=== PATIENT | female | born 1965 | race Caucasian/White ===

== ENCOUNTER 2016-03-25 12:25 | Day surgery (SDC) | payer OTHER ==
[~2016-03-25] VITALS: Ht 162.6 cm; Wt 104.3 kg
[~2016-03-25 12:25] MED LIST: AMPI3VIA IJ; ATEN100T PO; CETI10CA PO; CHOL500050 PO; CIPRODEX; CUB500I IV; CYAN500 PO; DIAZ5TAB3 PO; DIL4T PO; DOCU-41 PO; EPIN0.3P2 IJ; FLUC150T48 PO; FOLI1TAB18 PO; HYDR50CA PO; IMMUNE GLOBULIN IV; INSU100V7 SUBQ; INSU200I SQ; LACT1CAP13 PO; MEPE50TA PO; MERO1PIG IV; MS15TCR PO; MUPI1OIN5 NASAL; OFLO5DRO5 AFFECT_EAR; OMEP20TA24 PO; ONDA2VIA INJ; OXYC5TAB72 PO; PHENERGAN CODEINE; TRIA1CAP PO; WARF1TAB6 PO; ZLP10T PO; [UNRECOGNIZED DRUG - OTHER] INH; bactroban RIGHT_EAR
[2016-03-25 13:02] VITALS: BP 123/79; PULSE 84; RESP 16; O2SAT 97
[2016-03-25] MEDS: SODIUM CHLORIDE INTRACATH SCH ×4 (13:05→13:07)
[2016-03-25] MEDS: ALTEPLASE INTRACATH SCH ×4 (13:05→13:07)
[2016-03-25] MEDS ORDERED: Sodium Chloride LOK Flush 10 mL Syringe IVFLUSH ONE (15:30)
[2016-03-25] MEDS ORDERED: HepLOK Flush 100 unit/mL 5 mL Inj IVFLUSH ONE (15:30)
--- NOTE | 2016-03-25 15:49 | NUR ---
Alteplase Patient arrived to unit with crutches. Reports left knee pain/weakness -see orthopedic MD. Alteplase infused without adverse reaction. Both lumens flushed with 20mls of NS and 500units of Heparin. New claves placed. Left unit in stable condition.
[2016-07-22] MEDS ORDERED: Ofloxacin PO (14:07)
[2016-07-22] MEDS ORDERED: CHOL10008 PO (14:07)
[2016-07-22] MEDS ORDERED: Docusate Sodium PO (14:07)
[2016-07-22] MEDS ORDERED: DIAZ10TA PO (14:07)
[2016-07-22] MEDS ORDERED: HYDR25CA PO (14:07)
[2016-07-22] MEDS ORDERED: CYAN500 PO (14:07)
[2016-07-22] MEDS ORDERED: TRIA1CAP PO (14:07)
[2016-07-22] MEDS ORDERED: OXYC1TAB24 PO (14:07)
[2016-07-22] MEDS ORDERED: WARF1TAB6 PO (18:46)
== END 2016-03-25 23:59 | disposition home or self-care (01) ==
LOC: MOCO 12:25
PROVIDERS: ATTEND Surgery
DX: M86.68 Other chronic osteomyelitis, other site (principal)
CPT/HCPCS: 36593; J1642; J2997

== ENCOUNTER 2016-05-25 15:30 | Day surgery (SDC) | payer OTHER ==
[~2016-05-25] VITALS: Ht 162.6 cm; Wt 104.0 kg
[2016-05-25] MEDS ORDERED: 0.9% Sodium Chloride 100 ML ONE (15:31)
--- NOTE | 2016-05-25 15:49 | NUR ---
Pt arrived to [facility]: Pt arrived to [facility] for infusion of RPA. Pt stated that lines on Power Arenas only work "part of the time". Both lumens flushed very easily with brisk return of blood. When discussed with pt on the need still for the infusion pt was insistent that she receive infusion of RPA because of the "infrequency that lines work". Pt stated "it's hit and miss". Call placed to IVT for any further advise regarding Power Arenas. Awaiting medication from pharmacy.
[2016-05-25] MEDS: SODIUM CHLORIDE 0.9% IV PRN ×2 (16:30→16:31)
[2016-05-25] MEDS: ALTEPLASE IV PRN ×2 (16:30→16:31)
[2016-05-25 16:50] VITALS: BP 118/70; PULSE 76; RESP 18; O2SAT 95
[2016-05-25] MEDS ORDERED: HepLOK Flush 100 unit/mL 5 mL Inj ONE (18:19)
--- NOTE | 2016-05-25 18:51 | NUR ---
Infusion: Alteplase infused without adverse reaction. Both lumens flushed with 20mls of NS and 500units of Heparin.New claves placed. Left unit in stable condition.
[2016-07-22] MEDS ORDERED: Ofloxacin PO (14:07)
[2016-07-22] MEDS ORDERED: TRIA1CAP PO (14:07)
[2016-07-22] MEDS ORDERED: CHOL10008 PO (14:07)
[2016-07-22] MEDS ORDERED: OXYC1TAB24 PO (14:07)
[2016-07-22] MEDS ORDERED: CYAN500 PO (14:07)
[2016-07-22] MEDS ORDERED: DIAZ10TA PO (14:07)
[2016-07-22] MEDS ORDERED: HYDR25CA PO (14:07)
[2016-07-22] MEDS ORDERED: Docusate Sodium PO (14:07)
[2016-07-22] MEDS ORDERED: WARF1TAB6 PO (18:46)
== END 2016-05-25 23:59 | disposition home or self-care (01) ==
LOC: MOCO 15:30
PROVIDERS: ATTEND Surgery
DX: T82.898A Other specified complication of vascular prosthetic devices, implants and grafts, initial encounter (principal); M86.68 Other chronic osteomyelitis, other site
CPT/HCPCS: 36593; J1642; J2997

== ENCOUNTER 2016-10-30 09:03 | Inpatient (IN) | payer OTHER ==
[~2016-10-30] VITALS: Ht 162.6 cm; Wt 106.0 kg
[2016-10-30] VITALS (16 sets, daily range): BP systolic 98–138; BP diastolic 68–82; PULSE 71–80; RESP 7–18; O2SAT 94–99
[~2016-10-30 09:03] MED LIST changes: +CHOL10008 PO; -CHOL500050 PO; -CIPRODEX; +DIAZ10TA PO; -DIL4T PO; -DOCU-41 PO; +Docusate Sodium PO; -EPIN0.3P2 IJ; +HYDR25CA PO; -HYDR50CA PO; -LACT1CAP13 PO; +LACT1CAP26 PO; +Lactated Ringer's 1,000 ML IV ONE; -MEPE50TA PO; -MUPI1OIN5 NASAL; -OFLO5DRO5 AFFECT_EAR; -ONDA2VIA INJ; +OXYC-530 PO; +OXYC1TAB24 PO; -OXYC5TAB72 PO; +Ofloxacin PO; -PHENERGAN CODEINE; -[UNRECOGNIZED DRUG - OTHER] INH; -bactroban RIGHT_EAR
[2016-10-30 10:27] LABS: INR 0.95 ratio
[2016-10-30] MEDS ORDERED: HYDR2TAB28 PO (10:48)
--- NOTE | 2016-10-30 11:39 | PCM.HPANE ---
Patient Data Date of Service: Oct 30, 2016 Surgeon Admitting Provider: Attending Provider:Sivakumar Enamorado MD Primary Care Physician:Chad Shaver MD Other Provider:Marco A Juárez Anesthesia Reason for Visit Chronic Right Ear Mastoiditis,Hearing Loss CHRONIC RIGHT EAR MASTOIDITIS,HEARING LOSS Ht/WT & BMI Height (Feet): 5 Height (Inches): 4.00 Weight (Kilograms): 102.1 Body Mass Index 38.00 Allergies Coded Allergies: diclofenac (Verified Allergy, Severe, hives, 10/23/16) latex (Verified Allergy, Severe, HIVES, 10/23/16) misoprostol (Verified Allergy, Severe, hives, 10/23/16) sulbactam (Verified Allergy, Severe, anaphlatic to generic only. can use brand, 10/23/16) Penicillins (Verified Allergy, Intermediate, HIVES, 10/23/16) Sulfa (Sulfonamide Antibiotics) (Verified Allergy, Intermediate, Hives, ) itraconazole (Verified Allergy, Intermediate, stops bone marrow growth, ) GETS PANCYTOPENIC piperacillin (Verified Allergy, Unknown, UNKNOWN, 10/23/16) pancytopenic- can tolerate BRAND NAME UNASYN tazobactam (Verified Allergy, Unknown, UNKNOWN, 10/23/16) pancytopenic- can tolerate BRAND NAME UNASYN TAPE (Verified Adverse Reaction, Severe, RASH (ADHESIVE TAPE), 10/23/16) ibuprofen (Verified Adverse Reaction, Severe, n/v, 10/23/16) Past Anesthesia History Anesthesia History: Positive for:: Anesthesia Reactions (nausea, was awake for one procedure, anxiety r/t this/CLAUSTROPHOBIC), Denies:: Abnormal Airway, Difficult Intubation, Fam Anesthesia Reaction, Fam Malignant Hypertherm, Malignant Hyperthermia Diabetes History Hx Diabetes?: Yes (last Hgb A1c approx 6 mos ago 6.1) Type of Diabetes: Type II Glycemic Control: Insulin Dependent MRSA MRSA: Yes (prior hx, 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) Medications Blood Thinner: Coumadin Hypertension Medication: Yes Home Meds Incl Beta Marquita: Yes Date Beta Marquita Taken: Oct 30, 2016 Time Beta Marquita Taken: 0600 Reported Medications Hydromorphone 2 Mg Tablet2 Mg PO Q4H PRN Pain Ref 0 10/30/16 Warfarin Sodium 1 Mg Tablet1 Mg PO DAILY 30 Days Ref 0 07/22/16 Cyanocobalamin (Vitamin B12)500 Mcg Tablet1,000 Mcg PO DAILY 07/22/16 Hydroxyzine Pamoate (Vistaril)25 Mg Yykibkj92 Mg PO QID PRN For Itching Ref 0 07/22/16 Triamterene/HCTZ 37.5-25 mg (Dyazide 37.5-25 mg)1 Each Capsule1 Capsule PO DAILY Ref 0 07/22/16 [Docusate Sodium ] No Conflict Check50 Mg PO HS PRN For Constipation 07/22/16 Cholecalciferol (Vitamin D3) (Vitamin D3)1,000 Unit Tab.chew50,000 Unit PO DAILY 07/22/16 Omeprazole Magnesium (Prilosec Otc)20 Mg Tablet.dr40 Mg PO DAILY #1 PKG Ref 0 11/26/15 Meropenem-0.9% Sodium Chloride (Meropenem-0.9% NaCl 1 Gram/50)1 Gram/50 Ml Piggyback1 Gm IV TID 11/26/15 Diazepam 5 Mg Tablet5 Mg PO TID PRN For Anxiety Ref 0 11/26/15 Insulin Lispro (Humalog Kwikpen)200 Unit/Ml (3 Ml) Insuln.pen1 Unit SQ TIDWM 06/24/15 Insulin Glargine (Lantus U100 Insulin Vial)100 Unit/Ml Vial15 Unit SUBQ QPM #1 VIAL Ref 0 06/24/15 Folic Acid 1 Mg Wnzdpi396 Mcg PO DAILY 30 Days 06/24/15 Cetirizine HCl (Zyrtec)10 Mg Jdphggv59 Mg PO DAILY #30 CAPSULE Ref 0 06/24/15 oxyCODONE 5 Mg Tablet5 Mg PO Q6H PRN For Pain Ref 0 06/24/15 Morphine Sulfate ER (MS Contin)15 Mg Tablet.er15 Mg PO 1-4xdaily Ref 0 06/24/15 Fluconazole (Diflucan)150 Mg Loylmp191 Mg PO DAILY PRN yeast #1 TABLET Ref 0 06/24/15 Atenolol 100 Mg Kuptfl446 Mg PO DAILY Ref 0 06/24/15 Lactobacillus Acidophilus (Acidophilus)1 Each Capsule6-8 Each PO DAILY 06/24/15 [Immune globulin] 30gm/300ml No Conflict Check30 Gm IV q3 weeks 06/24/15 Daptomycin (Cubicin)500 Mg/10 Ml Ogkh805 Mg IV DAILY 06/24/15 Ampicillin Sodium/Sulbactam Na (Unasyn 3 gm Vial)3 Gm Vial3 Gm IJ Q6H Must be BRAND name Unasyn- pt allergic to generic 06/24/15 Discontinued Reported Medications Diazepam (Valium)10 Mg Whmouo27 Mg PO TID PRN For Anxiety 30 Days Ref 0 07/22/16 oxyCODONE-Acetaminophen 5-325 mg 1 Each Tablet1-2 Tab PO Q6H PRN For Pain Ref 0 07/22/16 [Ofloxacin] No Conflict Unmzu290 Mg PO BID 07/22/16 Zolpidem (Ambien)10 Mg Silkrd22 Mg PO HS PRN For Insomnia Ref 0 06/24/15 History History of ENT Problems?: Yes HEENT History: Positive for:: Hearing Problem (S/P PET RT) Sinus Problem (chronic ear and sinus with S/P multiple failed grafts) Denies:: Abnormal Airway Cataracts Difficult Intubation Dysphagia Denture Type: None Teeth Condition: Within Normal Limits Other HEENT Pertinent History: 18 titanium implants Hx of Heart Problems?: Yes Cardiovascular History: Positive for:: Edema Hypertension Thrombophlebitis (08/2015-SVC THROMBOSIS-TX @ [facility]) Denies:: AICD Atrial Fibrillation Cardiac Surgery Chest Pain Congestive Heart Failure Heart Murmur Irregular Heartbeat Pacemaker Valvular Heart Disease Other Cardiac History: pt has power young (tiny veins) placed at [facility], managed by [facility] clinics. recent hx of clogged line treated here 10/2016. Pt states that line is placed in a non anatomic site - DO NOT REMOVE Hx of Respiratory Problem?: No Respiratory History: Positive for:: Cough Denies:: Asthma COPD Dyspnea Emphysema Hemoptysis Oxygen Administration Pneumonia Tuberculosis Use of C-PAP Machine Hx Neurologic Problems?: Yes Neurological History: Positive for:: Dizziness (exacerbated with current infection) Headaches (R/T BONE REMOVAL) Denies:: Alzheimer's Disease CVA Dementia Parkinson's Disease Seizures Hx of GI Problems?: Yes Hx of Problems?: No Genitourinary History: Denies:: HX of Hemodialysis Kidney Stones Urinary Tract Infection HX of Peritoneal Dialysis: No Female Hx: Denies:: Currently (waiver signed and in packet) Endometriosis Pelvic Inflammatory Problems with Breasts? Skin History: Denies:: History Skin Disorders? 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 Denies:: Blood Transfuse Reaction Blood Transfusions Hx Diabetes: Yes (last Hgb A1c approx 6 mos ago 6.1) Hx Alcohol Use: NoHx Substance Use: No Smoking Status: Never Smoker Have You Smoked inLast 12 mo: No Stop/Bang T-Tired: feel tired, fatigued: Yes P-Blood Pressure: treated: Yes B- Body Mass Index > 35 kg/m2: Yes A- Age over 50: Yes N- Neck Large Circumference: No G- Gender Male: No MARGARITO Category 2: Yes Risk Assessment Category Category 1A: Patient has history of documented sleep apnea, and HAS NOT received any narcotic, sedative or anesthesia administration during this stay. Category 1B: Patient has history of documented sleep apnea, and HAS received any narcotic , sedative or anesthesia administration during this stay Category 2: Patient has SUSPECTED Obstructive Sleep Apnea, and HAS received any narcotic , sedative or anesthesia administration during this stay. Category 3: Patient has SUSPECTED Obstructive Sleep Apnea and HAS NOT received narcotic, sedative or anesthesia administration during this stay. Category 4: Outpatient in Procedural Areas with known sleep apnea or who screen positive for High Risk via the STOP/BANG questionnaire. Exam Exam General Appearance: Alert, Oriented X3, Cooperative, No Acute Distress HEENT/AIRWAY: MP 3 Lungs: Clear to Auscultation, Normal Air Movement Heart: Exam Unremarkable, Regular Rate/Rhythm, No Murmurs/Rubs/Gallops Meds/Labs/Diagnostics Labs Test 10/30/16 09:55 Prothrombin Time 10.1sec (8.1-12.5) Prothromb Time International Ratio 0.95ratio Plan Impression Patient chart reviewed, patient interviewed and anesthestic plan with risks, benefits, and alternatives discussed, and informed consent obtained. NPO per Anesth. Guidelines: Yes ASA Physical Status: ASA3 Severe Disease Anesthetic Plan: GA Bene/Risks/Altern/Consents: Yes HP Complete Prior to Induction: Yes Yaya Hawthorne MD Oct 30, 2016 11:39
[2016-10-30] MEDS ORDERED: SODIUM CHLORIDE 0.9% IV ONE (12:20)
[2016-10-30] MEDS ORDERED: SULBACTAM IV ONE (12:20)
[2016-10-30] MEDS ORDERED: AMPICILLIN IV ONE (12:20)
[2016-10-30] MEDS ORDERED: Lidocaine MPF 2%-Epi 1:200,000 10 mL Inj INFILTRATE ONE (12:25)
[2016-10-30] MEDS ORDERED: Lactated Ringer's 500 ML IV PRN (12:51)
[2016-10-30] MEDS ORDERED: Lactated Ringer's 1,000 ML IV SCH (12:51)
[2016-10-30] MEDS ORDERED: EPHEDrine Sulfate 50 mg/mL Inj IVPUSH PRN (12:55)
[2016-10-30] MEDS ORDERED: Ondansetron 2 mg/mL 2 mL Inj IVPUSH PRN (12:55)
[2016-10-30] MEDS ORDERED: Dexamethasone 4 mg/mL Inj IVPUSH PRN (12:55)
[2016-10-30] MEDS ORDERED: Phenylephrine 10,000 mCg/mL Inj IVPUSH PRN (12:55)
[2016-10-30] MEDS ORDERED: MetoCLOpramide 5 mg/mL 2 mL Inj IVPUSH PRN (12:55)
[2016-10-30] MEDS ORDERED: Bacitracin Ointment Packet TOPICAL ONE (13:32)
--- NOTE | 2016-10-30 13:43 | PCM.ANEP1 ---
Post Anesthesia PACU Phase 1 Assessment Date of Service: Oct 30, 2016 Vital Signs 36.8 98/77 80 10 99% FM Anesthetic Administered: GA Level of Alertness: Sleepy, easy to arouse VERA's with Equal Strength: Yes Pain: No Nausea or Vomiting: No CV Function & Hydration Stable: Yes Airway Device: Oxygen Delivery: Simple Mask Lungs: Clear to Auscultation, Normal Air Movement PACU Phase 2 Assessment Complications: No Follow up Care: N/A Patient Instructions Provided: N/A Yaya Hawthorne MD Oct 30, 2016 13:43
[2016-10-30] MEDS: HYDROmorphone 1 mg/mL Inj IVPUSH PRN ×2 (13:52→14:49)
[2016-10-30] MEDS: fentaNYL-PF 50 mCg/mL 2 mL Inj IVPUSH PRN ×2 (14:00→14:11)
--- NOTE | 2016-10-30 15:40 | NUR ---
Arrived on Unit Patient arrived on floor from PACU in stable condition. VSS. BULK PLANT OPERATOR set up 0.4/10/2.4 with 1mg loading dose. Denied nausea at this time. Patient orientated to call light, bed, and BULK PLANT OPERATOR. Belongings at bedside. Dressing serous sanguineous. Call light and tray table within reach. Will continue to monitor patient hourly.
[2016-10-30] MEDS ORDERED: Dexamethasone 4 mg/mL Inj ONE (15:54)
[2016-10-30] MEDS ORDERED: fentaNYL-PF 50 mCg/mL 2 mL Inj ONE (15:54)
[2016-10-30] MEDS ORDERED: Succinylcholine Chloride 20 mg/mL 5 mL Inj ONE (15:54)
[2016-10-30] MEDS ORDERED: Phenylephrine/NS 100 mCg/mL 10 mL Syringe IVPUSH ONE (15:54)
[2016-10-30] MEDS ORDERED: Ondansetron 2 mg/mL 2 mL Inj ONE (15:54)
[2016-10-30] MEDS ORDERED: Propofol 10,000 mCg/mL 20 mL Inj ONE (15:54)
[2016-10-30] MEDS: HYDROmorphone PCA 0.2 mg/mL 30 mL Inj - Opioid Tolerant IV PRN ×2 (16:09→20:46)
[2016-10-30] MEDS ORDERED: MetoCLOpramide 5 mg/mL 2 mL Inj IV PRN (16:35)
[2016-10-30] MEDS ORDERED: Ondansetron 8 mg ODT Tablet PO PRN (16:35)
[2016-10-30] MEDS ORDERED: HYDROmorphone 1 mg/mL Inj IVPUSH PRN ×2 (16:45)
[2016-10-30] MEDS: SODIUM CHLORIDE 0.9% IV SCH (18:35)
[2016-10-30] MEDS: AMPICILLIN IV SCH (18:35)
[2016-10-30] MEDS: SULBACTAM IV SCH (18:35)
[2016-10-30] MEDS ORDERED: Dextrose 10% 250 ML IV PRN (18:45)
[2016-10-30] MEDS ORDERED: Glucose 40% Oral Gel 15 Gm Tube PO PRN (18:45)
[2016-10-30] MEDS: Meropenem 1 Gm/100 mL NS Minibag Plus IV SCH ×2 (20:27)
[2016-10-30] MEDS ORDERED: Docusate Sodium 10 mg/mL 10 mL Liquid PO PRN (21:00)
[2016-10-30] MEDS: Insulin GLARgine 100 Unit/mL Syringe SUBQ SCH (23:10)
[2016-10-31] VITALS (14 sets, daily range): BP systolic 107–127; BP diastolic 69–74; PULSE 61–78; RESP 16–20; O2SAT 94–99
--- NOTE | 2016-10-31 01:13 | OP ---
[address] [address] OPERATIVE REPORT PATIENT: RAIZA YAÑEZ : 1965 MR#: [id number] ADMIT: 10/30/2016 JOB ID: [id number] DATE OF SURGERY: PREOPERATIVE DIAGNOSIS(ES): Chronic right mastoiditis. POSTOPERATIVE DIAGNOSIS(ES): Chronic right mastoiditis. PROCEDURE: Radical revision mastoidectomy. SURGEON: Sivakumar Enamorado MD HISTORY/INDICATIONS: The patient is a 50-year-old woman with chronic immune deficiency problems, who has had chronic sinusitis, status post multiple surgeries, chronic ear disease, again status post multiple surgeries, now with persistent painful right ear with intermittent purulent discharge despite constant parental and topical antibiotics. PROCEDURE AND FINDINGS: Taken to the operating room, placed in prone position on the operating table. General endotracheal anesthesia induced. Head is turned left. The right periauricular area is prepped and draped in a sterile fashion. Through the canal, the anterior perforation is noted. There is thick yellowish mucopus that was aspirated. A culture was taken. Incisions were made to develop Jaylyn flap. Postauricular incision was then made with the cutting cautery. The mastoid cortex and the mastoid defect from previous surgery is exposed. The self-retaining retractor is inserted. Immediately, thick mucopurulent material was encountered. The mastoid opening was enlarged with a large cutting bur. The mastoid is full of purulent material, granulation tissue, scar tissue. With a combination of careful dissection with a #2 House knife, Gennaro knives and then careful drilling with a frieda bur, the entire mastoid cavity is opened. The maddi and antrum is explored and opened. The incus is in position and is mobile. The facial ridge was taken down further, taking care to avoid injury to the facial nerve. The middle ear is then entered posteriorly. The ossicular chain is intact and mobile. A crescent of conchal cartilage was resected to further develop the Jaylyn flap. After polishing with a frieda bur, the ear is returned to its anatomic position, closing the deep layers with interrupted buried 4-0 chromic, the skin with Dermabond. Back under the operating microscope, the Jaylyn flap is positioned. The meatal area is then packed with 1/4-inch iodoform gauze saturated with bacitracin. Cotton and eye pad dressing were then applied. The patient is awake and extubated in the operating room, returned to the recovery room in good condition where facial nerve function is noted to be normal.
[2016-10-31] MEDS: AMPICILLIN IV SCH ×4 (01:33→17:42)
[2016-10-31] MEDS: SODIUM CHLORIDE 0.9% IV SCH ×4 (01:33→17:42)
[2016-10-31] MEDS: SULBACTAM IV SCH ×4 (01:33→17:42)
[2016-10-31] MEDS: Ondansetron 2 mg/mL 2 mL Inj IV PRN ×4 (01:45→09:19)
[2016-10-31] MEDS: HYDROmorphone PCA 0.2 mg/mL 30 mL Inj - Opioid Tolerant IV PRN ×3 (02:25→20:49)
[2016-10-31] MEDS: Meropenem 1 Gm/100 mL NS Minibag Plus IV SCH ×6 (03:33→20:42)
[2016-10-31 05:41] LABS: INR 0.95 ratio
[2016-10-31] MEDS: Pantoprazole 40 mg ER24 Tablet PO SCH (07:26)
--- NOTE | 2016-10-31 07:49 | NUR ---
Pain Patient's pain was well managed this shift with FABRIC WORKER LEADER Dilaudid. Patient didn't appear to sleep all night. Dressing on right ear remains clean dry and intact. Vitals stable. Patient A&OX3. Care continues.
[2016-10-31] MEDS: Insulin LISPRO 300 Unit/3 mL Inj SUBQ SCH ×3 (08:00→17:30)
--- NOTE | 2016-10-31 09:58 | NUR ---
Morning Medications Patient refused morning medications at this time. Only request Valium and ondansetron. Patient reported slight nausea. 8mg ondansetron given. 6/10 ear pain. ABSTRACT SEARCHER settings 0.4/10/2.4. Patient up with SBA. Call light and tray table within reach. Will continue to monitor patient hourly. Addendum: 10/31/16 at 1538 by WILLIS GARCIA RN Morning meds given except Atenolol and Claritin, patient refused. Patient asked for only one lactobacillus.
[2016-10-31] MEDS: DAPTOmycin Inj 500 MG in 0.9% Sodium Chloride 50 ML IV SCH (12:14)
[2016-10-31] MEDS ORDERED: Sodium Chloride LOK Flush 10 mL Syringe IVFLUSH SCH (15:50)
[2016-10-31] MEDS ORDERED: Sodium Chloride LOK Flush 10 mL Syringe IVFLUSH PRN (15:50)
[2016-10-31] MEDS: HepLOK Flush 100 unit/mL 5 mL Inj IVFLUSH PRN (15:59)
[2016-10-31] MEDS ORDERED: 0.9% Sodium Chloride 500 ML IV SCH (18:00)
[2016-10-31] MEDS: hydrOXYzine Pamoate 25 mg Capsule PO PRN (18:05)
--- NOTE | 2016-10-31 18:36 | NUR ---
Cough Medicine Patients own promethazine with codeine cough syrup is in pharmacy. Call pharmacy when patient requests medication.
[2016-11-01] VITALS (7 sets, daily range): BP systolic 116–127; BP diastolic 58–73; PULSE 61–74; RESP 16–20; O2SAT 95–99
[2016-11-01] MEDS: Insulin GLARgine 100 Unit/mL Syringe SUBQ SCH ×2 (00:05→23:18)
[2016-11-01] MEDS: HepLOK Flush 100 unit/mL 5 mL Inj IVFLUSH PRN (00:06)
[2016-11-01] MEDS: AMPICILLIN IV SCH ×3 (01:38→23:11)
[2016-11-01] MEDS: SODIUM CHLORIDE 0.9% IV SCH ×3 (01:38→23:11)
[2016-11-01] MEDS: SULBACTAM IV SCH ×3 (01:38→23:11)
[2016-11-01] MEDS: PROMETHAZINE WITH CODEINE PO PRN ×3 (01:38→17:09)
[2016-11-01] MEDS: Ondansetron 2 mg/mL 2 mL Inj IV PRN ×2 (01:39→13:01)
--- NOTE | 2016-11-01 04:03 | NUR ---
PAIN/DRESSING Patient continues on HERITAGE CONSULTANT for pain management. Patient understands and accepts that she will be weaning off starter cup powder mixer in morning to oral pain medication. Patient wanted to take a shower and have dressing changed which was performed without issue. Will continue to monitor.
[2016-11-01] MEDS: Meropenem 1 Gm/100 mL NS Minibag Plus IV SCH ×6 (04:36→20:07)
[2016-11-01] MEDS: HYDROmorphone PCA 0.2 mg/mL 30 mL Inj - Opioid Tolerant IV PRN ×2 (04:42→13:02)
[2016-11-01] MEDS: hydrOXYzine Pamoate 25 mg Capsule PO PRN ×2 (06:10→19:41)
[2016-11-01] MEDS: Pantoprazole 40 mg ER24 Tablet PO SCH (06:10)
[2016-11-01] MEDS: Insulin LISPRO 300 Unit/3 mL Inj SUBQ SCH ×4 (08:00→19:30)
--- NOTE | 2016-11-01 11:23 | NUR ---
Social Work: Initial Assessment/Multidisciplinary Rounds D: EMR reviewed. Please see Initial Assessment linked to this note for more information. Pt is a 50 year old female admitted [place] with a readmit risk score of 3 for chronic right ear mastoiditis, hearing loss per H&P. Pt's insurance is [employer]. PCP is hCad Shaver MD. Pt discussed in multidisciplinary rounds, pt is not medically stable for discharge. No SW orders have been placed at this time. SW met with pt at bedside to conduct initial assessment. Pt was alert and oriented x3. SW explained role and wrote phone number on white board. SW provided [facility] Discharge Planning Checklist and encouraged pt to contact SW for any discharge planning questions. Pt lives at home alone in [place]. Pt is independent with all ADLs at baseline. Pt uses no DME at baseline, but has a cane and walker available for use at discharge. Pt drives. Pt has no HH or SNF history. Pt has no LTC or VA benefits. Pt is open with [facility] for superintendent terminal IV abx. Pt mixes and administers her own IV abx, also draws her own labs. Nurse comes from [facility] to manage lines as needed. Dr. Jae Enamorado, ENT, orders and follows pt's antibiotics. Pt has no DPOA on file, states that it is at her attorneys office. Declined bringing this into the hospital. Pt is likely to d/c home with friend to transport via POV. SW will continue to follow and coordinate resumption of abx services. A: Pt who is independent at baseline and has the capacity for self-care. P: Pt anticipated to discharge home with friend to transport via POV, resumption of IV abx. No MD orders received at this time. SW will continue to follow for needs until time of discharge. ADRYAN Siddiqui Addendum: 11/01/16 at 1123 by ERICA YOUNG Amended: Links added.
[2016-11-01] MEDS: DAPTOmycin Inj 500 MG in 0.9% Sodium Chloride 50 ML IV SCH (12:12)
--- NOTE | 2016-11-01 14:33 | NUR ---
POST-OP PROGRESS REMARKETING MANAGER Dilaudid has been effective for pain control. Tolerating liquids PO and her diet well. Denies SOB. Up with assist to the BR. Tolerated activity. Dressing has minimal drainage in it. Voiding without any problems.
[2016-11-01] MEDS: Insulin LISPRO Low-Dose Scale SUBQ SCH ×2 (17:30→19:26)
--- NOTE | 2016-11-01 19:46 | NUR ---
Insulin Per pt. insulin regime as follows: Lispro 8 units with breakfast, 4 units with lunch, and 6 units with dinner. PCP OK with no insulin coverage if blood sugar less than 150 Pt. takes 15 units Lantus at HS Per pt. MD was going to start using sliding scale instead of set #s but unsure of what sliding scale he was going to use. Pt. has written this down and note is in chart. This RN spoke with pharmacist who stated that she attempted to call MD but was unable to reach him. Message left.
--- NOTE | 2016-11-01 20:17 | PROG NOTE ---
[address] [address] PROGRESS NOTE PATIENT: RAIZA YAÑEZ : 1965 MR#: [id number] ADMIT: 10/30/2016 JOB ID: [id number] DATE: 11/01/2016 The patient is three days post right mastoidectomy. For the most part, she is doing well. Her insulin dosage has been adequate so far and it is on a sliding scale. She is having minimal discomfort and is on a SQL DATABASE DEVELOPER unit for this. I told her I would be okay for her to shower this evening. Tomorrow Dr. Agudelo should be seeing her and dressing will be changed. She will continue to keep her head elevated and hopefully continue a regular diet.
[2016-11-02] VITALS (8 sets, daily range): BP systolic 111–132; BP diastolic 64–69; PULSE 63–73; RESP 16–18; O2SAT 96–98
[2016-11-02] MEDS: Meropenem 1 Gm/100 mL NS Minibag Plus IV SCH ×6 (02:40→19:09)
[2016-11-02] MEDS: AMPICILLIN IV SCH ×3 (05:47→18:19)
[2016-11-02] MEDS: SULBACTAM IV SCH ×3 (05:47→18:19)
[2016-11-02] MEDS: SODIUM CHLORIDE 0.9% IV SCH ×3 (05:47→18:19)
[2016-11-02] MEDS: Pantoprazole 40 mg ER24 Tablet PO SCH (05:51)
--- NOTE | 2016-11-02 06:27 | NUR ---
Pain pt reported R ear pain at 8/10 at beginning of shift and requested for OUTSIDE SALES CONSULTANT to be turned on again, which was started at previous settings at 1930. Pt had one episode of nausea and Vistaril was given for that, effective. Pt has some sersosang drainage from ear wound, but dressing intact, washcloth placed on neck area to keep her dry. Pt reports gen body aches, states that she feels like she is getting a cold. VSS, afebrile.
[2016-11-02] MEDS: PROMETHAZINE WITH CODEINE PO PRN ×2 (06:44→23:46)
--- NOTE | 2016-11-02 07:29 | PROG NOTE ---
[address] [address] PROGRESS NOTE PATIENT: RAIZA YAÑEZ : 1965 MR#: [id number] ADMIT: 10/30/2016 JOB ID: [id number] DATE: 10/31/2016 SUBJECTIVE: This is patient's first postoperative day following right radical mastoidectomy. She has had good pain control overnight with the CHIEF ANALYTICS OFFICER. She has remained afebrile. Diabetic control has been good. PHYSICAL EXAMINATION: She is afebrile. Vital signs are stable. Her dressing is intact. Facial nerve function is normal. ASSESSMENT: Uneventful first postop night. PLAN: Dressing change will be undertaken. The patient will be encouraged to wean from the CHIEF ANALYTICS OFFICER, switch over to oral pain medications. Discharge will depend on adequate pain control with oral drugs. This has been issue for this patient in the past, but we will work as quickly as possible towards that goal.
[2016-11-02] MEDS: Insulin LISPRO 300 Unit/3 mL Inj SUBQ SCH ×3 (08:00→19:31)
[2016-11-02] MEDS: Insulin LISPRO Low-Dose Scale SUBQ SCH ×4 (08:00→23:34)
--- NOTE | 2016-11-02 08:09 | PATH ---
SURGICAL PATHOLOGY Attending Physician:Sivakumar Enamorado M.D. CASE STATUS: Signed Out PATIENT NAME: RAIZA YAÑEZ PID: [id number] : 1965 DATE COLLECTED:10/30/2016 00:00 SPECIMEN: Mass, NOS CLINICAL HISTORY: CHRONIC MASTOIDITIS, RIGHT EAR 1). RIGHT EAR MASTOID CONTENT FINAL DIAGNOSIS: Right Ear Mastoid Content, Radical Revision Mastoidectomy: Fragments of bone, fibrotic tissue and overlying mucosa with chronic active inflammation. See comment. ICD10: H70.11 NOTE: Sections are of bone and fibrotic tissue. There is an overlying mucosa lined by a low cuboidal to columnar epithelium. Chronic active inflammation is readily identified. There is a focal multinucleated foreign body giant cell reaction. Overall, these findings are consistent with chronic active mastoiditis. GROSS DESCRIPTION: The specimen is received in formalin, labeled with the patient's name, sublabeled as right mastoid contents, and consists of multiple pieces of jameson-white fibrous rubbery tissue (1.7 x 0.8 x 0.5 cm in aggregate, ranging 0.4 x 0.2 x 0.2 cm-1.5 x 0.8 x 0.5 cm). Section code: (A) smaller intact pieces; (B) largest piece, trisected. Specimen entirely submitted. 10/31/16 ICD-9 CODES: CPT CODES: 1: 88690 Electronically Signed Out Alvin Almonte MD, Ph.D. [facility] Pathology [facility] [address], [place] [address] Technical component performed at [facility], [facility] [address], [place], [address]
[2016-11-02] MEDS: HYDROmorphone PCA 0.2 mg/mL 30 mL Inj - Opioid Tolerant IV PRN ×2 (08:27→18:42)
--- NOTE | 2016-11-02 13:41 | PROG NOTE ---
[address] [address] PROGRESS NOTE PATIENT: RAIZA YAÑEZ : 1965 MR#: [id number] ADMIT: 10/30/2016 JOB ID: [id number] DATE: 11/02/2016 SUBJECTIVE: Patient had a reasonable night last night. Got some sleep. Today her pain is increased and she has been relying on the RADIATION PHYSICIST for pain control. Has not been taking oral pain medication. Her blood sugars have been under good control. There has been minimal serosanguineous drainage from the wound. OBJECTIVE: On exam, the dressing is intact. No signs of infection. ASSESSMENT: Postoperative pain control continues to be an issue, as is always the case for this patient. The inflammation and swelling from the surgery generally peaks at about 72 hours, so hopefully this will be her worst day and we can once again tomorrow encourage her to switch over to the p.o. pain medication. PE. She understands that the switching the oral pain medication will be the rate limiting step in terms of getting her home. No changes in her current treatment.
[2016-11-02] MEDS: DAPTOmycin Inj 500 MG in 0.9% Sodium Chloride 50 ML IV SCH (14:00)
[2016-11-02] MEDS: hydrOXYzine Pamoate 25 mg Capsule PO PRN (14:13)
--- NOTE | 2016-11-02 17:08 | NUR ---
POD3 TEST CARRIER Dilaudid has been helpful for pain control. Per patient she is not ready to transition to PO meds at this time. Dr. Enamorado is aware of this. Via FELDT scale patients pain level is 0/10 after her pain medication. Tolerating liquids PO and her diet well. Denies nausea. No emesis noted. Denies SOB. Patient has been ambulating with SBA in the room. Gait is steady. Dressing is intact in her R ear. Voiding without any problems.
[2016-11-02] MEDS: Ondansetron 2 mg/mL 2 mL Inj IV PRN (20:14)
[2016-11-02] MEDS: Insulin GLARgine 100 Unit/mL Syringe SUBQ SCH (23:36)
[2016-11-03] VITALS (7 sets, daily range): BP systolic 104–124; BP diastolic 61–75; PULSE 68–76; RESP 16–18; O2SAT 95–98
--- NOTE | 2016-11-03 00:38 | NUR ---
Arenas line care Pt observed using own supplies and aseptic technique to perform heparin flush of own Arenas line. This followed long discussion about routine care of line, notes observed written by pt on earlier day after discussion with Dr Enamorado about maintaining line care. Will request follow up from medical team for future line care.
[2016-11-03] MEDS: HYDROmorphone PCA 0.2 mg/mL 30 mL Inj - Opioid Tolerant IV PRN ×3 (01:13→19:54)
[2016-11-03] MEDS: Meropenem 1 Gm/100 mL NS Minibag Plus IV SCH ×6 (03:15→22:04)
[2016-11-03] MEDS: AMPICILLIN IV SCH ×4 (05:45→17:23)
[2016-11-03] MEDS: SODIUM CHLORIDE 0.9% IV SCH ×4 (05:45→17:23)
[2016-11-03] MEDS: SULBACTAM IV SCH ×4 (05:45→17:23)
[2016-11-03] MEDS: Pantoprazole 40 mg ER24 Tablet PO SCH (05:47)
[2016-11-03] MEDS: Insulin LISPRO Low-Dose Scale SUBQ SCH ×4 (09:12→22:00)
[2016-11-03] MEDS: Insulin LISPRO 300 Unit/3 mL Inj SUBQ SCH ×3 (09:13→19:49)
[2016-11-03] MEDS: HepLOK Flush 100 unit/mL 5 mL Inj IVFLUSH SCH (12:18)
--- NOTE | 2016-11-03 13:49 | PROG NOTE ---
[address] [address] PROGRESS NOTE PATIENT: RAIZA YAÑEZ : 1965 MR#: [id number] ADMIT: 10/30/2016 JOB ID: [id number] DATE: 11/03/2016 SUBJECTIVE: The patient continues to have pain control issues following her right ear surgery. She has been unable to wean completely from the TRAY SERVICE WORKER pump at this point. Her blood sugars have been under good control. OBJECTIVE: On exam, she is afebrile. She is awake, alert. Her wounds were intact. Packing was intact in the right ear. ASSESSMENT: Continued pain control issues following right ear surgery. PLAN: We will start her up on her routine MS Contin 15 mg every 6 hours. She will then use her p.o. Dilaudid for breakthrough; the goal being to wean her completely off of the TRAY SERVICE WORKER over the next 24 hours.
[2016-11-03] MEDS: Morphine ER 15 mg (MS Contin) Tablet PO SCH ×2 (15:05→22:02)
[2016-11-03] MEDS: DAPTOmycin Inj 500 MG in 0.9% Sodium Chloride 50 ML IV SCH (15:30)
--- NOTE | 2016-11-03 16:39 | NUR ---
ACTIVITY NIGHT PATROL INSPECTOR Dilaudid has been effective for pain control. Patient was started on PO Morphine and will be transitioning to PO pain medication in the morning. Tolerating liquids PO and her diet well. Denies nausea. No emesis noted. Denies SOB. Patient ambulated in the hallway X 2. Dressing change per patients request. Minimal drainage noted.
[2016-11-03] MEDS: PROMETHAZINE WITH CODEINE PO PRN (22:55)
[2016-11-03] MEDS: Insulin GLARgine 100 Unit/mL Syringe SUBQ SCH (23:50)
[2016-11-04] MEDS: SULBACTAM IV SCH ×4 (01:13→18:31)
[2016-11-04] MEDS: AMPICILLIN IV SCH ×4 (01:13→18:31)
[2016-11-04] MEDS: SODIUM CHLORIDE 0.9% IV SCH ×4 (01:13→18:31)
[2016-11-04] MEDS: Meropenem 1 Gm/100 mL NS Minibag Plus IV SCH ×6 (04:02→20:06)
[2016-11-04 04:45] VITALS: BP 119/70; PULSE 72; RESP 18; O2SAT 96
[2016-11-04] MEDS: Morphine ER 15 mg (MS Contin) Tablet PO SCH ×5 (05:14→23:08)
--- NOTE | 2016-11-04 05:30 | NUR ---
Shift note: Patient pain managed with STEEL C[employer]TER and PO pain medications. Had coughing fit mid shift, relieved with patient own cough medicine brought up from pharmacy. Patient up walking halls with [employer], did three laps in halls, tolerated well but got fatigued during the third lap. VSS. Call light within reach. Will continue to monitor hourly.
[2016-11-04] MEDS: Pantoprazole 40 mg ER24 Tablet PO SCH (06:28)
[2016-11-04] MEDS: PROMETHAZINE WITH CODEINE PO PRN ×2 (06:28→23:51)
[2016-11-04] MEDS: HYDROmorphone PCA 0.2 mg/mL 30 mL Inj - Opioid Tolerant IV PRN ×2 (08:58→19:41)
[2016-11-04] MEDS: Insulin LISPRO 300 Unit/3 mL Inj SUBQ SCH ×3 (10:30→20:06)
[2016-11-04] MEDS: Insulin LISPRO Low-Dose Scale SUBQ SCH ×4 (10:31→23:44)
[2016-11-04] MEDS: HepLOK Flush 100 unit/mL 5 mL Inj IVFLUSH SCH ×2 (10:37→15:46)
[2016-11-04 10:50] VITALS: RESP 14; O2SAT 96
--- NOTE | 2016-11-04 11:16 | NUR ---
Social Work: Continued Discharge Planning/Multidisciplinary Rounds D: EMR reviewed. Pt is on day 5 of hospitalization. Pt discussed in multidisciplinary rounds and is not medically stable for discharge at this time, anticipate 1-2 more days pending ID. If pt changes to POABX at discharge, SW to update [facility]. If pt does not change to POABX, SW will need resume orders and IVABX orders written. SW to fax orders or update [facility] once ABX course at discharge is determined. Pt followed by Jae Enamorado MD at [facility]. Pt administers her own IBABX and draws her own labs. [facility] RN to manage lines. If pt does not need lines or long-term IVABX, SW to get discontinue order from MD per [facility]. A: Pt who is independent at baseline and has capacity for self-care. P: Pt anticipated to discharge home with friend to transport via POV. SW to R/O IVABX at discharge. If pt needs IVABX at discharge, SW to request resumption orders for RN and fax ABX orders to [facility]. If pt does not need IVABX and lines at discharge, SW to request discontinue order and fax to [facility]. No MD orders received at this time. SW will continue to follow for needs pending ID. ADRYAN Decker
[2016-11-04 13:02] VITALS: BP 116/72; PULSE 72; RESP 17; O2SAT 97
[2016-11-04] MEDS ORDERED: .Epic Conversion Completed XX PRN (14:50)
[2016-11-04 16:14] VITALS: RESP 16; O2SAT 96
[2016-11-04] MEDS: DAPTOmycin Inj 500 MG in 0.9% Sodium Chloride 50 ML IV SCH (16:14)
--- NOTE | 2016-11-04 18:26 | NUR ---
Pain/GENERAL TECHNICIAN Tried transitioning pt off GENERAL TECHNICIAN to oral pain meds w/o success. Pt took one dose of oral dilaudid then declined MS contin for break through pain meds and walked in hallways and took shower, then pain was 8/10 and wanted GENERAL TECHNICIAN back. Reconnected and gave pt 1mg bolus. Discussed trying again tonight or in the morning, so she can discharge and pt is agreeable with plan. Bed in low, call light in reach. Addendum: 11/04/16 at 1841 by KRANTHI BANERJEE RN GENERAL TECHNICIAN pump not cleared by previous shift. Totals charted include dosing done on previous shift.
[2016-11-04 19:44] VITALS: RESP 16; O2SAT 96
[2016-11-04 20:14] VITALS: BP 124/56; PULSE 78; RESP 18; O2SAT 98
[2016-11-04] MEDS ORDERED: Mupirocin 2% 22 Gm Ointment TOPICAL PRN (22:40)
[2016-11-04] MEDS: Insulin GLARgine 100 Unit/mL Syringe SUBQ SCH (23:44)
== END 2016-11-05 01:27 | disposition admitted as inpatient to this hospital (09) | DRG 153 ==
LOC: SAS 09:03 → OSC 15:53
PROVIDERS: ADMIT Otolaryngology Facial Plastic Surgery; ATTEND Otolaryngology Facial Plastic Surgery
DX: H70.11 Chronic mastoiditis, right ear (principal); H90.A31 Mixed conductive and sensorineural hearing loss, unilateral, right ear with restricted hearing on the contralateral side